=== PATIENT | female | born 1940 | race Two or more races ===

== ENCOUNTER → 2019-08-19 06:00 | Outpatient (CLI) | payer OTHER ==
[~2019-08-19] VITALS: Ht 154.9 cm; Wt 68.5 kg
[~2019-08-19 06:00] MED LIST: BENAZEPRIL HCL10 MG PO; CALTRATE 600+D1 EAC1 PO; HORIZANT300 MG PO; KEPPRA500 MG PO; LEVO-T25 MCG PO; REFRESH CLASSI1 EACH OP; SIMVASTATIN20 MG PO; VITAMIN C500 M6 PO; [UNRECOGNIZED DRUG - OTHER] PO
== END | disposition home or self-care (01) ==
LOC: LAB 06:00 → SURH 08-23 08:00 → EDSTATUS 08-23 08:00 → SURH 08-23 10:45 → ADM 10-04 08:00 → EDSTATUS 10-11 08:00 → ADM 10-11 08:00
DX: M17.12 Unilateral primary osteoarthritis, left knee (principal); D68.8 Other specified coagulation defects; Z01.818 Encounter for other preprocedural examination; I10 Essential (primary) hypertension